=== PATIENT | male | born 1975 | race Caucasian/White ===

== ENCOUNTER 2020-08-04 16:45 | Inpatient (IN) | payer BC, OTHER ==
[~2020-08-04] VITALS: Ht 177.8 cm; Wt 142.3 kg
[2020-08-04] MEDS ORDERED: ACETAMINOPHEN 500 MG TAB PO ONE (17:45)
[2020-08-04] MEDS ORDERED: cefTRIAXone SOD 1,000 MG VL IM ONE (17:45)
[2020-08-04] MEDS ORDERED: cefTRIAXone 1GM/50ML D5W 50 ML IV ONE (18:30)
[2020-08-04] MEDS ORDERED: SODIUM CHLORIDE 0.9% 1,000 ML IV ONE (18:30)
[2020-08-04] MEDS ORDERED: AZITHROMYCIN 500MG/ 250ML 250 ML IV ONE (18:30)
[2020-08-04 19:55] LABS: Basophils # (auto) 0.1 10 ^3/uL (0-0.2); Basophils % (auto) 0.6 % (0.0-2.0); Eosinophils # (auto) 0 10 ^3/uL (0-0.8); Hematocrit 44.3 % (41.0-53.0); Hemoglobin 15.3 g/dL (13.5-17.5); Lymphocytes # (auto) 1.1 10 ^3/uL (0.4-5.4); Lymphocytes % (auto) 10.4 % (10.0-50.0); Mean Corpuscular Hemoglobin 30.5 pg (28.0-32.0); Mean Corpuscular Hgb Conc. 34.5 g/dL (32.0-36.0); Mean Corpuscular Volume 88.2 fL (80.0-100.0); Monocytes # (auto) 0.5 10 ^3/uL (0-1.3); Monocytes % (auto) 4.7 % (0.0-12.0); Neutrophils # (auto) 8.5 10 ^3/uL (1.6-8.6); Neutrophils % (auto) 84.3 % (37.0-80.0); Nucleated Red Blood Cells % 0.7 %; Platelet Count (auto) 149 10^3/uL (140-450); Red Blood Cells 5.02 10^6/uL (4.5-5.90); Red Cell Distribution Width 13.9 % (11.8-14.3); White Blood Cell 10.1 10^3/uL (4.4-10.8)
[2020-08-04 20:13] LABS: Calcium 8.2 mg/dL (8.5-10.1); Potassium 3.9 mmol/L (3.5-5.1)
[2020-08-04 20:14] LABS: Lactic Acid w/Reflex 3.5 mmol/L (0.4-2.0)
[2020-08-04 20:19] LABS: Albumin 3.8 g/dL (3.4-5.0); BUN/Creatinine Ratio 12.7; Bilirubin, Total 1.6 mg/dL (0.2-1.0); Total Protein 7.7 g/dL (6.4-8.2)
[2020-08-04] MEDS ORDERED: guaiFENesin-CODEINE Liq 5 ML UD PO ONE (22:30)
[2020-08-05] MEDS ORDERED: IBUPROFEN 800 MG TAB PO ONE (00:15)
[2020-08-05] MEDS ORDERED: ACETAMINOPHEN 500 MG TAB PO ONE (00:15)
[2020-08-05] MEDS ORDERED: ONDANSETRON HCL 4 MG/2 ML VIAL IV PRN (01:15)
[2020-08-05] MEDS ORDERED: NITROGLYCERIN 0.4 MG SL TAB SL PRN (01:15)
[2020-08-05] MEDS ORDERED: HYDROcodone-ACET 5/325MG TAB PO PRN (01:15)
[2020-08-05] MEDS ORDERED: DEXTROSE (50%) 50ML SYRG IV PRN (01:15)
[2020-08-05] MEDS ORDERED: SOD CHL 0.45% 1,000 ML IV SCH (01:15)
[2020-08-05] MEDS ORDERED: MORPHINE SULF INJ 2 MG/ML SYRINGE 1ML IV PRN (01:15)
[2020-08-05] MEDS ORDERED: ACETAMINOPHEN 325 MG TAB PO PRN (01:15)
[2020-08-05 05:00] VITALS: BP 132/73
[2020-08-05] MEDS ORDERED: OMEP20TA PO (05:52)
[2020-08-05] MEDS ORDERED: ATOR20TA50 PO (05:52)
[2020-08-05] MEDS ORDERED: LISI-648 PO (05:52)
[2020-08-05] MEDS ORDERED: METF-370 PO (05:52)
[2020-08-05] MEDS ORDERED: ALLO100T PO (05:52)
[2020-08-05] MEDS ORDERED: MELA3TAB27 PO ×2 (05:52)
[2020-08-05 05:53] VITALS: BP 134/73
[2020-08-05] MEDS ORDERED: INFLUENZA QUAD 2020-2021 0.5 ML SYRG IM ONE (06:15)
[2020-08-05] MEDS ORDERED: PNEUMOCOCCAL VACC POLYS 25 MCG/0.5 ML VIAL IM SCH (06:15)
[2020-08-05] MEDS: InsuLIN REG 1unit/0.01ml Soln (100units/ml) SC SCH ×4 (06:38→22:48)
[2020-08-05] MEDS: ACCU-CHEK COMFORT CURVE STRIP VI SCH ×4 (06:38→22:48)
[2020-08-05 09:00] VITALS: BP 114/77
[2020-08-05] MEDS: HEPARIN SODIUM (PORCINE) 5000 UNITS/ML 1ML VIAL SC SCH ×2 (09:47→22:44)
[2020-08-05] MEDS: guaiFENesin-DM 100/10mg/5ml SYR PO PRN ×3 (10:00→21:23)
[2020-08-05] MEDS: FAMOTIDINE (10MG/ML) 2ML VL IV SCH ×2 (10:08→22:49)
[2020-08-05] MEDS: cefTRIAXone 1GM/50ML D5W 50 ML IV SCH (10:08)
[2020-08-05] MEDS ORDERED: VANCOMYCIN PER PHARMACY 0 MG IV SCH (10:30)
[2020-08-05] MEDS: ALBUTEROL SULF 2.5 MG/0.5ML(0.5%) NEB SOLN NEB SCH ×4 (11:40→22:38)
[2020-08-05 11:42] LABS: Basophils # (auto) 0 10 ^3/uL (0-0.2); Basophils % (auto) 0.6 % (0.0-2.0); Eosinophils # (auto) 0 10 ^3/uL (0-0.8); Eosinophils % (auto) 0.2 % (0.0-7.0); Hematocrit 42.1 % (41.0-53.0); Hemoglobin 14.3 g/dL (13.5-17.5); Lymphocytes # (auto) 0.9 10 ^3/uL (0.4-5.4); Lymphocytes % (auto) 11.9 % (10.0-50.0); Mean Corpuscular Hemoglobin 30.1 pg (28.0-32.0); Mean Corpuscular Hgb Conc. 33.9 g/dL (32.0-36.0); Mean Corpuscular Volume 88.8 fL (80.0-100.0); Monocytes # (auto) 0.4 10 ^3/uL (0-1.3); Monocytes % (auto) 5.2 % (0.0-12.0); Neutrophils # (auto) 6.4 10 ^3/uL (1.6-8.6); Neutrophils % (auto) 82.1 % (37.0-80.0); Nucleated Red Blood Cells % 0.2 %; Platelet Count (auto) 151 10^3/uL (140-450); Red Blood Cells 4.74 10^6/uL (4.5-5.90); Red Cell Distribution Width 14.1 % (11.8-14.3); White Blood Cell 7.8 10^3/uL (4.4-10.8)
[2020-08-05] MEDS ORDERED: VANCOMYCIN 1GM/250ML 250 ML IV ONE (12:00)
[2020-08-05 12:06] LABS: Albumin 3.4 g/dL (3.4-5.0); BUN/Creatinine Ratio 15.7; Bilirubin, Total 0.9 mg/dL (0.2-1.0)
[2020-08-05] MEDS: DexAMETHasone SOD PHOS 10MG/1ML VIAL INJ IV SCH (12:32)
[2020-08-05] MEDS: AZITHROMYCIN 500MG/ 250ML 250 ML IV SCH (12:32)
[2020-08-05 13:00] VITALS: BP 130/78
[2020-08-05] MEDS: VANCOMYCIN 1GM/250ML 250 ML IV SCH (16:00)
[2020-08-05 17:00] VITALS: BP 142/80
[2020-08-05 22:00] VITALS: BP 135/67
[2020-08-06 00:30] VITALS: BP 135/67
[2020-08-06] MEDS: guaiFENesin-DM 100/10mg/5ml SYR PO PRN ×2 (01:28→09:33)
[2020-08-06] MEDS: VANCOMYCIN 1GM/250ML 250 ML IV SCH (02:27)
[2020-08-06 05:00] VITALS: BP 158/54
[2020-08-06] MEDS: ACCU-CHEK COMFORT CURVE STRIP VI SCH ×3 (06:30→17:00)
[2020-08-06] MEDS: ALBUTEROL SULF 2.5 MG/0.5ML(0.5%) NEB SOLN NEB SCH ×5 (06:35→14:35)
[2020-08-06] MEDS: InsuLIN REG 1unit/0.01ml Soln (100units/ml) SC SCH ×3 (06:36→17:00)
[2020-08-06 07:14] LABS: Basophils # (auto) 0 10 ^3/uL (0-0.2); Basophils % (auto) 0.2 % (0.0-2.0); Eosinophils # (auto) 0 10 ^3/uL (0-0.8); Hematocrit 38.7 % (41.0-53.0); Hemoglobin 13.2 g/dL (13.5-17.5); Lymphocytes % (auto) 16.5 % (10.0-50.0); Mean Corpuscular Hemoglobin 30.3 pg (28.0-32.0); Mean Corpuscular Hgb Conc. 34.2 g/dL (32.0-36.0); Mean Corpuscular Volume 88.6 fL (80.0-100.0); Monocytes # (auto) 0.4 10 ^3/uL (0-1.3); Monocytes % (auto) 6.8 % (0.0-12.0); Neutrophils # (auto) 4.6 10 ^3/uL (1.6-8.6); Neutrophils % (auto) 76.5 % (37.0-80.0); Nucleated Red Blood Cells % 0.2 %; Platelet Count (auto) 163 10^3/uL (140-450); Red Blood Cells 4.37 10^6/uL (4.5-5.90); Red Cell Distribution Width 13.7 % (11.8-14.3)
[2020-08-06 07:29] LABS: Albumin 3.3 g/dL (3.4-5.0); Calcium 7.7 mg/dL (8.5-10.1); Potassium 3.9 mmol/L (3.5-5.1)
[2020-08-06 07:31] LABS: BUN/Creatinine Ratio 15.6
[2020-08-06 07:38] LABS: Bilirubin, Total 0.8 mg/dL (0.2-1.0); Total Protein 6.8 g/dL (6.4-8.2)
[2020-08-06 08:56] VITALS: BP 151/89
[2020-08-06] MEDS: FAMOTIDINE (10MG/ML) 2ML VL IV SCH (09:31)
[2020-08-06] MEDS: cefTRIAXone 1GM/50ML D5W 50 ML IV SCH (09:31)
[2020-08-06] MEDS: DexAMETHasone SOD PHOS 10MG/1ML VIAL INJ IV SCH (09:32)
[2020-08-06] MEDS: HEPARIN SODIUM (PORCINE) 5000 UNITS/ML 1ML VIAL SC SCH (09:49)
[2020-08-06] MEDS: AZITHROMYCIN 500MG/ 250ML 250 ML IV SCH (10:43)
[2020-08-06 13:00] VITALS: BP 118/80
[2020-08-06] MEDS ORDERED: INFLUENZA QUAD 2020-2021 0.5 ML SYRG IM ONE (17:16)
== END 2020-08-06 17:45 | disposition home or self-care (01) | DRG 193 ==
LOC: ER 16:45 → EDBD 16:45 → UNDOADMIN 08-05 01:12 → CENTRAL 08-05 01:12 → TELE 08-05 01:12 → TELE-CENTR 08-05 04:33
PROVIDERS: ADMIT Nurse Practitioner Family; ATTEND Nurse Practitioner Family
PROC: 5A09357 Assistance with Respiratory Ventilation, Less than 24 Consecutive Hours, Continuous Positive Airway Pressure (ICD-10-PCS; principal; 2020-08-06)
PROC: 3E0234Z Introduction of Serum, Toxoid and Vaccine into Muscle, Percutaneous Approach (ICD-10-PCS; 2020-08-06)
DX: J18.9 Pneumonia, unspecified organism (principal); J96.01 Acute respiratory failure with hypoxia; N17.0 Acute kidney failure with tubular necrosis; E87.2 Acidosis; J98.11 Atelectasis; E66.01 Morbid (severe) obesity due to excess calories; F41.9 Anxiety disorder, unspecified; E78.5 Hyperlipidemia, unspecified; E11.9 Type 2 diabetes mellitus without complications; J03.90 Acute tonsillitis, unspecified; Z20.820 Contact with and (suspected) exposure to varicella; I10 Essential (primary) hypertension; K21.9 Gastro-esophageal reflux disease without esophagitis; G47.33 Obstructive sleep apnea (adult) (pediatric); Z20.822 Contact with and (suspected) exposure to COVID-19; Z79.4 Long term (current) use of insulin; Z79.899 Other long term (current) drug therapy; Z68.39 Body mass index [BMI] 39.0-39.9, adult; Z23 Encounter for immunization
CPT/HCPCS: 36415; 71045; 71046; 80053; 82962; 83036; 83605; 85025; 87040; 87426; 94640; 94660; 96361; 96365; 96368; 96372; G0378; J0696; J1100; J1815; J3490